=== PATIENT | female | born 2000 | race Caucasian/White ===

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

== ENCOUNTER 2018-07-21 16:27 | Emergency (ER) | payer BC ==
[~2018-07-21] VITALS: Ht 160 cm; Wt 63.6 kg
[~2018-07-21 16:27] MED LIST: ZARAH PO
[2018-07-21 16:40] VITALS: TEMP 97.5
[2018-07-21 17:47] LABS: COLLECTION METHOD CLEAN CATCH
[2018-07-21 18:07] LABS: BASO % 0.2 % (0.0-2.0); EOS % 0.1 % (0-4.0); GRAN % 83.8 % (42.2-75.2); HEMATOCRIT 41.8 % (35.0-45.0); HEMOGLOBIN 14.5 g/dl (12.0-15.0); LYMPH # 1.1 (1.2-3.4); LYMPH % 10.4 % (20.0-51.0); MEAN CELL VOLUME 91 fl (80.0-95.0); MEAN CORPUSCULAR HEMOGLOBIN 31 pg (26.0-32.0); MEAN CORPUSCULAR HGB CONC 35 g/dl (33.0-37.0); MEAN PLATELET VOLUME 10.2 fl (7.4-10.4); MONO # 0.6 (0.1-0.6); MONO % 5.1 % (1.7-9.3); PLATELET COUNT 208 K/mm3 (130-400); RED BLOOD COUNT 4.62 M/mm3 (4.10-5.30); REDCELL DISTRIBUTION WIDTH-CV 11.6 % (11.5-14.5)
[2018-07-21 18:13] LABS: MUCOUS Present /lpf; PH 5 (5-8); SQUAMOUS EPITHELIAL 0-2 /hpf; URINE APPEARANCE Hazy; URINE BACTERIA None Seen /hpf; URINE BILIRUBIN Negative (NEGATIVE); URINE BLOOD Negative (NEGATIVE); URINE COLOR Yellow; URINE GLUCOSE Negative (NEGATIVE); URINE KETONE Negative (NEGATIVE); URINE LEUKOCYTE ESTERASE Negative (NEGATIVE); URINE NITRATE Negative (NEGATIVE); URINE PROTEIN(semi-quant) Negative (NEGATIVE); URINE RBC 0-2 /hpf; URINE UROBILINOGEN Negative (NEGATIVE)
[2018-07-21 18:18] LABS: ALBUMIN 4.3 gm/dL (3.5-5.0); BILIRUBIN,TOTAL 0.5 mg/dL (0.0-1.0); CALCIUM 9.7 mg/dL (8.4-10.2); CREATININE, serum 0.81 mg/dL (0.52-1.25); POTASSIUM 4.3 mmol/L (3.4-5.0); TOTAL PROTEIN 7.8 gm/dL (6.4-8.2)
[2018-07-21 18:52] VITALS: BP 103/61
[2018-07-21 19:25] VITALS: PULSE 106
== END 2018-07-21 19:26 | disposition home or self-care (01) ==
LOC: COL.ER 16:27
PROVIDERS: Physician Assistant
DX: R55 Syncope and collapse (principal)

== ENCOUNTER → 2020-03-14 | Outpatient (CLI) | payer BC | LOC: ZCOL.LAB 10:21 | DX: Z20.828 Contact with and (suspected) exposure to other viral communicable diseases (principal) ==